=== PATIENT | male | born 1995 | race Caucasian/White ===

== ENCOUNTER 2018-01-04 20:07 | Emergency (ER) | payer OTHER ==
[~2018-01-04] VITALS: Ht 185.4 cm; Wt 91.6 kg
[2018-01-04] MEDS ORDERED: CEPHALEXIN500 M1 PO (20:21)
== END 2018-01-04 20:27 | disposition home or self-care (01) ==
LOC: ED 20:07
DX: R22.32 Localized swelling, mass and lump, left upper limb (principal)

== ENCOUNTER 2018-03-22 18:19 | Emergency (ER) | payer OTHER ==
[~2018-03-22] VITALS: Ht 185.4 cm; Wt 73.5 kg
[~2018-03-22 18:19] MED LIST: CEPHALEXIN500 M1 PO
== END 2018-03-22 19:25 | disposition home or self-care (01) ==
LOC: ED 18:19
DX: S46.912A Strain of unspecified muscle, fascia and tendon at shoulder and upper arm level, left arm, initial encounter (principal); H92.01 Otalgia, right ear; Z79.2 Long term (current) use of antibiotics; X58.XXXA Exposure to other specified factors, initial encounter; Y93.89 Activity, other specified; Y92.89 Other specified places as the place of occurrence of the external cause; Y99.8 Other external cause status

== ENCOUNTER 2018-10-06 18:30 | Emergency (ER) | payer OTHER ==
[~2018-10-06] VITALS: Wt 79.4 kg
[2018-10-06 19:27] LABS: BASO % 0.2 % (0.0-1.0); EOS % 0.2 % (1.0-4.0); HEMOGLOBIN 14.4 g/dl (14.0-18.0); LYMPH # 0.9 10*3/uL (1.3-4.4); LYMPH % 7.1 % (27.0-41.0); MEAN CELL VOLUME 95.5 fl (80.0-94.0); MEAN CORPUSCULAR HGB 32.7 pg (27.0-31.0); MEAN CORPUSCULAR HGB CONC 34.3 g/dl (33.0-37.0); MEAN PLATELET VOLUME 10.3 fl (9.6-12.3); MONO % 7.7 % (3.0-9.0); NEUT # 10.6 10*3/uL (2.3-7.9); NEUT % 84.6 % (47.0-73.0); PLATELET COUNT AUTOMATED 223 10*3/uL (130-400); RED CELL DISTRI WIDTH 11.9 % (0-14.5); WHITE BLOOD COUNT 12.6 10*3/uL (4.8-10.8)
[2018-10-06 19:42] LABS: ALBUMIN 3.9 gm/dl (3.1-4.5); ALKALINE PHOSPHATASE 90 U/L (45-117); BUN 14 mg/dl (7-24); CHLORIDE 103 mmol/L (98-107); CREATININE 1.53 mg/dL (0.70-1.30); LIPASE 137 U/L (73-393); POTASSIUM 3.6 mmol/L (3.5-5.1); SGOT/AST 10 IU/L (3-35); SGPT/ALT 20 U/L (12-78); SODIUM 135 mmol/L (136-145); TOTAL PROTEIN 8.2 gm/dL (6.4-8.2)
[2018-10-06 21:29] LABS: BILIRUBIN NEGATIVE (NEGATIVE); BLOOD 2+ (NEGATIVE); CLARITY SL CLOUDY (CLEAR); COLOR YELLOW (YELLOW); GLUCOSE NEGATIVE (NEGATIVE); KETONE NEGATIVE (NEGATIVE); LEUKO ESTERASE 1+ (NEGATIVE); NITRITE POSITIVE (NEGATIVE); PH 6.5 (5.0-9.0)
[2018-10-06 21:46] LABS: BACTERIA 3+; MUCOUS 1+; WBC 51-100 wbc/hpf (0-5)
[2018-10-06] MEDS ORDERED: IBU800 MG PO (21:46)
== END 2018-10-06 23:35 | disposition home or self-care (01) ==
LOC: ED 18:30
PROVIDERS: Nurse Practitioner Family
DX: S22.42XA Multiple fractures of ribs, left side, initial encounter for closed fracture (principal); R10.12 Left upper quadrant pain; R06.02 Shortness of breath; R11.0 Nausea; Z79.2 Long term (current) use of antibiotics; Y04.2XXA Assault by strike against or bumped into by another person, initial encounter; Y93.89 Activity, other specified; Y92.89 Other specified places as the place of occurrence of the external cause; Y99.8 Other external cause status

== ENCOUNTER → 2019-04-01 | Outpatient (CLI) | payer OTHER ==
[~2019-04-01] MED LIST changes: +IBU800 MG PO
== END | disposition home or self-care (01) ==
LOC: CARD 09:22
DX: Z79.899 Other long term (current) drug therapy (principal)

== ENCOUNTER 2019-09-05 21:40 | Emergency (ER) | payer OTHER ==
[~2019-09-05] VITALS: Wt 2.7 kg
[2019-09-05] MEDS ORDERED: VIBRAMYCIN100 MG PO (22:18)
== END 2019-09-05 22:36 | disposition home or self-care (01) ==
LOC: ED 21:40
DX: S40.861A Insect bite (nonvenomous) of right upper arm, initial encounter (principal); Z79.899 Other long term (current) drug therapy; W57.XXXA Bitten or stung by nonvenomous insect and other nonvenomous arthropods, initial encounter; Y93.89 Activity, other specified; Y92.89 Other specified places as the place of occurrence of the external cause; Y99.8 Other external cause status

== ENCOUNTER 2019-09-24 07:10 | Emergency (ER) | payer OTHER ==
[~2019-09-24] VITALS: Ht 185.4 cm; Wt 86.2 kg
[~2019-09-24 07:10] MED LIST changes: +VIBRAMYCIN100 MG PO
[2019-09-24] MEDS ORDERED: LIDEX 0.05% CRE15 GM T (07:51)
== END 2019-09-24 08:16 | disposition home or self-care (01) ==
LOC: ED 07:10
PROVIDERS: Emergency Medicine
DX: T14.8XXA Other injury of unspecified body region, initial encounter (principal); L30.9 Dermatitis, unspecified; F17.200 Nicotine dependence, unspecified, uncomplicated; W57.XXXA Bitten or stung by nonvenomous insect and other nonvenomous arthropods, initial encounter; Y93.89 Activity, other specified; Y92.89 Other specified places as the place of occurrence of the external cause; Y99.8 Other external cause status

== ENCOUNTER → 2019-12-21 | Emergency (ER) | payer OTHER ==
[~2019-12-21] MED LIST changes: +LIDEX 0.05% CRE15 GM T
== END ==
LOC: ED 17:21
DX: R07.9 Chest pain, unspecified (principal); Z53.21 Procedure and treatment not carried out due to patient leaving prior to being seen by health care provider

== ENCOUNTER 2020-06-19 09:28 | Emergency (ER) | payer SELFPAY ==
[~2020-06-19] VITALS: Wt 83.5 kg
[2020-06-19 10:32] LABS: BILIRUBIN Negative (Negative); BLOOD Trace-Lysed (Negative); CLARITY Clear (Clear); COLOR Yellow (Yellow); GLUCOSE Negative (Negative); KETONE Negative (Negative); LEUKO ESTERASE Negative (Negative); NITRITE Negative (Negative); SPECIFIC GRAVITY 1.025 (1.001-1.030)
[2020-06-19 10:44] LABS: BACTERIA TRACE; MUCOUS 2+; WBC 0-2 wbc/hpf (0-5)
== END 2020-06-19 11:07 | disposition home or self-care (01) ==
LOC: ED 09:28
PROVIDERS: Emergency Medicine
DX: B34.9 Viral infection, unspecified (principal); F17.200 Nicotine dependence, unspecified, uncomplicated; Z20.822 Contact with and (suspected) exposure to COVID-19; Z79.899 Other long term (current) drug therapy

== ENCOUNTER 2021-12-14 22:33 | Emergency (ER) | payer OTHER ==
[~2021-12-14] VITALS: Ht 185.4 cm; Wt 83.9 kg
[2021-12-14] MEDS ORDERED: PENICILLIN VK500 MG PO (22:50)
== END 2021-12-14 22:59 | disposition home or self-care (01) ==
LOC: ED 22:33
DX: K02.9 Dental caries, unspecified (principal)

== ENCOUNTER 2022-08-31 19:28 | Emergency (ER) | payer MEDICAID ==
[~2022-08-31] VITALS: Wt 72.6 kg
[~2022-08-31 19:28] MED LIST changes: +PENICILLIN VK500 MG PO
[2022-08-31] MEDS ORDERED: VYVANSE40 MG PO (19:53)
[2022-08-31] MEDS ORDERED: VIIBRYD20 M1 PO (19:54)
[2022-08-31] MEDS ORDERED: CEPHALEXIN500 M1 PO (20:01)
== END 2022-08-31 20:18 | disposition home or self-care (01) ==
LOC: ED 19:28
DX: S10.96XA Insect bite of unspecified part of neck, initial encounter (principal); F41.9 Anxiety disorder, unspecified; Z88.8 Allergy status to other drugs, medicaments and biological substances; W57.XXXA Bitten or stung by nonvenomous insect and other nonvenomous arthropods, initial encounter; Y93.89 Activity, other specified; Y92.89 Other specified places as the place of occurrence of the external cause; Y99.8 Other external cause status

== ENCOUNTER 2024-01-05 16:57 | Emergency (ER) | payer SELFPAY ==
[~2024-01-05] VITALS: Ht 185.4 cm; Wt 86.2 kg
[~2024-01-05 16:57] MED LIST changes: +VIIBRYD20 M1 PO; +VYVANSE40 MG PO
[2024-01-05] MEDS ORDERED: AMOX-CLAV 875-1 EACH PO (18:39)
[2024-01-05] MEDS ORDERED: ALBUTEROL 8 GM INHALER INH ONE (18:40)
[2024-01-05] MEDS ORDERED: Amoxicillin/Clavulanate Pota 875 MG TAB PO ONE (18:40)
== END 2024-01-05 19:35 | disposition home or self-care (01) ==
LOC: ED 16:57
DX: J02.9 Acute pharyngitis, unspecified (principal); F17.200 Nicotine dependence, unspecified, uncomplicated; Z88.8 Allergy status to other drugs, medicaments and biological substances

== ENCOUNTER 2024-07-18 19:50 | Emergency (ER) | payer SELFPAY ==
[~2024-07-18] VITALS: Ht 185.4 cm; Wt 99.8 kg
[~2024-07-18 19:50] MED LIST changes: +AMOX-CLAV 875-1 EACH PO
[2024-07-18] MEDS ORDERED: METHOCARBAMOL 750 MG TAB PO ONE (20:30)
[2024-07-18] MEDS ORDERED: Ketorolac Tromethamine 60 MG/2 ML VIAL IM ONE (20:30)
[2024-07-18] MEDS ORDERED: NAPROSYN500 MG PO (20:33)
[2024-07-18] MEDS ORDERED: METHOCARBAMOL750 M1 PO (20:33)
== END 2024-07-18 20:41 | disposition home or self-care (01) ==
LOC: ED 19:50
DX: S39.012A Strain of muscle, fascia and tendon of lower back, initial encounter (principal); F41.9 Anxiety disorder, unspecified; Z79.899 Other long term (current) drug therapy; Z88.8 Allergy status to other drugs, medicaments and biological substances; X50.1XXA Overexertion from prolonged static or awkward postures, initial encounter; Y93.89 Activity, other specified; Y92.89 Other specified places as the place of occurrence of the external cause; Y99.8 Other external cause status